=== PATIENT | male | born 1975 | race Caucasian/White ===

== ENCOUNTER 2019-11-19 20:20 | Emergency (ER) | payer OTHER ==
[~2019-11-19] VITALS: Ht 180.3 cm; Wt 76.7 kg
[2019-11-19 21:33] VITALS: BP 123/70
== END 2019-11-19 21:33 | disposition home or self-care (01) ==
LOC: M.ERS 20:20
DX: S71.112A Laceration without foreign body, left thigh, initial encounter (principal); W01.0XXA Fall on same level from slipping, tripping and stumbling without subsequent striking against object, initial encounter; Y93.89 Activity, other specified; Y92.89 Other specified places as the place of occurrence of the external cause; Y99.8 Other external cause status